=== PATIENT | female | born 2000 | race Caucasian/White ===

== ENCOUNTER → 2018-04-17 18:37 | Outpatient (REF) | payer BC, SELFPAY ==
[2018-04-17 19:45] LABS: Bilirubin Negative (Negative); Blood Negative (Negative); Clarity Cloudy; Glucose Negative (Negative); Ketones Trace mg/dL (Negative); Leukocyte Esterase Small (Negative); Nitrite Positive (Negative); Specific Gravity 1.025 (1.005-1.025); Urobilinogen 0.2 EU/dL (Up TO 0.2)
[2018-04-17 20:13] LABS: Bacteria Moderate HPF (Negative); C & S Indicated? Yes; Casts Negative LPF (Negative); Crystals Many Amorphous HPF (Negative); Epithelial Cells Negative HPF (Negative); Mucus Negative (Negative); RBC Negative (0-2)
[2018-04-19 14:08] LABS: Chlamydia Result Negative; GC Result Negative; Specimen Description URINE
== END ==
LOC: LBN 18:37
DX: Z00.00 Encounter for general adult medical examination without abnormal findings (principal); R03.0 Elevated blood-pressure reading, without diagnosis of hypertension; Z11.3 Encounter for screening for infections with a predominantly sexual mode of transmission; R39.9 Unspecified symptoms and signs involving the genitourinary system
CPT/HCPCS: 87077; 87491; 87591; 81003; 81015; 87086; 87186

== ENCOUNTER → 2018-04-18 09:20 | Outpatient (CLI) | payer BC, SELFPAY ==
[2018-04-18 10:48] LABS: ALT 20 U/L (12-78); AST 15 U/L (15-37); Albumin 3.7 g/dL (3.4-5.0); Alkaline Phosphatase 56 U/L (46-116); Anion Gap 9.2 mmol/L (3-11); BUN 10 mg/dL (7-18); Bilirubin, Total 0.3 mg/dL (0.2-1.0); CO2 28.8 mmol/L (21.0-32.0); CREATININE 0.86 mg/dL (0.55-1.02); Calcium 8.8 mg/dL (8.5-10.1); Chloride 102 mmol/L (98-107); Cholesterol 238 mg/dL (50-200); Glucose 81 mg/dL (70-100); HDL Cholesterol 63 mg/dL (40-60); LDL CHOLESTEROL 158 mg/dL (<100); Potassium 3.7 mmol/L (3.5-5.1); Sodium 140 mmol/L (136-145); TSH (W/Ref FT4) 1.65 uIU/mL (0.516-4.13); Total Protein 7.2 g/dL (6.4-8.2); Triglyceride 102 mg/dL (30-150)
== END ==
DX: Z00.00 Encounter for general adult medical examination without abnormal findings (principal); R03.0 Elevated blood-pressure reading, without diagnosis of hypertension; R39.9 Unspecified symptoms and signs involving the genitourinary system
CPT/HCPCS: 36415; 80053; 80061; 83721; 81003; 84443